=== PATIENT | male | born 1955 | race Caucasian/White ===

== ENCOUNTER 2021-01-17 09:15 | Inpatient (IN) | payer MEDICARE, SELFPAY ==
[2021-01-17] VITALS (26 sets, daily range): BP systolic 141–195; BP diastolic 68–91; PULSE 69–88; RESP 16–29; TEMP 36.3–38; O2SAT 93–98
--- NOTE | ~2021-01-17 | US_ITS ---
EXAMINATION: US renal BI EXAM DATE: 01/19/2021 09:38 INDICATION: Acute kidney injury. TECHNIQUE: Multiple grayscale and Doppler images of the kidneys were obtained (by a technologist who performed the scan) and subsequently reviewed. There is no prior study for comparison. FINDINGS: Right kidney: There is normal contour and echogenicity. It measures 9.2 x 5.1 x 6.7 centimeters. Th ere are no focal renal lesions identified. There is no hydronephrosis. Left kidney: There is normal contour and echogenicity. It measures 11.8 x 6.7 x 7.8 centimeters. Th ere are no focal renal lesions identified. There is no hydronephrosis. Bladder unremarkable. IMPRESSION: 1. Sonographically unremarkable kidneys. Reviewed, dictated and finalized at location A.
--- NOTE | ~2021-01-17 | XR_ITS ---
EXAMINATION: XR chest 2V DATE: 01/17/2021 10:53 INDICATION: Fever. TECHNIQUE: Frontal and lateral views of the chest were obtained. COMPARISON: None. FINDINGS: Calcified pulmonary nodules and calcified hilar and mediastinal lymph nodes are consistent with old granulomatous disease. There is mild atelectasis at left lung base. No pleural effusion or p neumothorax. The heart size is normal. IMPRESSION: 1. Mild atelectasis at left lung base. Reviewed, dictated and finalized at location A.
[2021-01-17 10:16] LABS: Lactic Acid Reflex 0.9 mmol/L (0.7-2.1)
[2021-01-17 10:19] LABS: Alanine Aminotransferase 32 U/L (4-50); Albumin Level 4.3 g/dL (3.5-5.1); Alkaline Phosphatase 68 U/L (38-126); Anion Gap 10 mmol/L (8-16); Aspartate Amino Transferase 26 U/L (17-59); Bilirubin,Total 1.4 mg/dL (0.2-1.3); Blood Urea Nitrogen 30 mg/dL (9-20); CRP 4.5 mg/dL (<1.0); Calcium 9.5 mg/dL (8.4-10.2); Carbon Dioxide 25 mmol/L (22-30); Chloride 104 mmol/L (98-107); Estimated CRCL calculation 57 ml/min; Estimated Glomerular Filt Rate 44; Glucose 135 mg/dL (75-110); Potassium 4.6 mmol/L (3.4-5.0); Sodium 139 mmol/L (137-145)
[2021-01-17 10:22] LABS: Basophils Percent Auto 0.2 % (0.2-1.2); Eosinophils Percent Auto 0.1 % (0-4.4); Hematocrit 43.7 % (42.0-52.0); Hemoglobin 14.3 g/dL (14.0-18.0); Immature Granulocyte Absolute 0.09 K/mm3 (0.00-0.031); Immature Granulocyte Percent A 0.6 % (0-0.5); Lymphocytes Absolute Auto 0.94 K/mm3 (0.9-3.2); Lymphocytes Percent Auto 5.9 % (18.3-44.2); Mean Corpuscular HGB Conc 32.7 g/dl (32-36); Mean Corpuscular Hemoglobin 29.9 pg (26-34); Mean Corpuscular Volume 91.2 fl (80-100); Mean Platelet Volume 9.7 fl (7.4-10.4); Monocytes Absolute Auto 1.1 K/mm3 (0.1-0.6); Monocytes Percent Auto 6.7 % (2.6-8.5); Neutrophils Absolute Auto 13.7 K/mm3 (1.3-6.7); Neutrophils Percent Auto 86.5 % (45.5-73.1); Platelet Count Result 135 k/mm3 (150-375); Red Blood Count 4.79 M/mm3 (4.6-6.20); White Blood Count 15.9 K/mm3 (4.5-10.0)
--- NOTE | 2021-01-17 10:25 | ED.FEVER ---
HPI - Fever General Chief Complaint: Fever <ASHLEY Alejandre - Last Filed: 01/17/21 12:25> Stated Complaint: weak, fever, v/d- surgery 2 weeks ago <ASHLEY Alejandre - Last Filed: 01/17/21 12:25> Time Seen by Provider: 01/17/21 10:08 <ASHLEY Alejandre - Last Filed: 01/17/21 12:25> Source: patient <ASHLEY Alejandre - Last Filed: 01/17/21 12:25> Mode of arrival: ambulatory <ASHLEY Alejandre - Last Filed: 01/17/21 12:25> Limitations: no limitations <ASHLEY Alejandre - Last Filed: 01/17/21 12:25> History of Present Illness HPI Narrative: Patient is a 65-year-old male who presents complaining of generalized weakness, nausea, vomiting x1, diarrhea, fever, urinary frequency and dysuria x1 day. Patient reports having right rotator cuff repair approximately [address] Herron. Patient reports little PO intake since yesterday Patient's reports calling Dr. Herron's office this a.m. and sent to the ED for further evaluation. Patient denies known Covid exposure, reports Covid vaccine x2. He reports a history of hypertension and elevated cholesterol. He denies taking any [id number] medications prior to arrival. <ASHLEY Alejandre - Last Filed: 01/17/21 12:25> MD elicited complaint: fever and weakness <ASHLEY Alejandre - Last Filed: 01/17/21 12:25> Related Data Allergies/Adverse Reactions: Allergies Allergy/AdvReac Type Severity Reaction Status Date / Time No Known Allergies Allergy Unknown Verified 01/17/21 09:46 <ASHLEY Alejandre - Last Filed: 01/17/21 12:25> Review of Systems Review of Systems: Narrative: CONSTITUTIONAL: Denies fever, chills, or sweats. EYES: Denies visual changes, redness, or discharge. ENT: Denies rhinorrhea, congestion, sore throat, or otalgia. CARDIOVASCULAR: Denies chest pain, palpitations, or edema. RESPIRATORY: Denies cough or dyspnea. GASTROINTESTINAL: Reports nausea, vomiting and diarrhea. GENITOURINARY: Reports dysuria and frequency SKIN: Denies rash or itching. MUSCULOSKELETAL: Denies back pain, joint pain, or myalgia. Reports mild right shoulder pain status post rotator cuff repair NEUROLOGIC: Denies headache, numbness, dizziness, or weakness. PSYCHIATRIC: Denies anxiety or depression. <ASHLEY Alejandre - Last Filed: 01/17/21 12:25> PMF Past Medical History Medical History: Medical History (Updated 01/17/21 @ 12:23 by ASHLEY Alejandre) Elevated cholesterol HTN (hypertension) <ASHLEY Alejandre - Last Filed: 01/17/21 12:25> Surgical History Surgical History: Surgical History (Updated 01/17/21 @ 10:29 by ASHLEY Alejandre) H/O repair of rotator cuff History of back surgery S/P right rotator cuff repair <ASHLEY Alejandre - Last Filed: 01/17/21 12:25> Family History Family History: Family History (Updated 01/17/21 @ 10:29 by ASHLEY Alejandre) Other Hypertension <ASHLEY Alejandre - Last Filed: 01/17/21 12:25> Social History Social History: Social History (Updated 01/17/21 @ 10:29 by ASHLEY Alejandre) Smoking status: Never smoker Alcohol intake: never Substance use: never Living arrangements: with family Occupation/Education: retired Gender identity (if verbalized by the patient): Male <ASHLEY Alejandre - Last Filed: 01/17/21 12:25> Comments At the time of signature, I have reviewed and agree with nursing past medical, surgical, social, and family history unless otherwise noted. Please see nursing chart for further information. There is no relevant family history pertinent to the presenting complaint. <ASHLEY Alejandre - Last Filed: 01/17/21 12:25> Exam Narrative: Exam Narrative: GENERAL: Well-appearing, well-nourished, and in no acute distress. HEAD: Normocephalic, atraumatic. EYES: EOMI. No redness or drainage. Conjunctiva are normal. ENT: Mucous membranes pink and moist. Nare
[2021-01-17 10:28] LABS: INR 1.1; Prothrombin Time 15.2 Seconds (11.1-14.7)
[2021-01-17 10:29] LABS: Partial Thromboplastin Time 30.8 SECONDS (22.3-36.8)
[2021-01-17] MEDS: ONDANSETRON INJ 4 MG/2 ML VIAL IV PUSH (11:12)
[2021-01-17] MEDS: SODIUM CHLORIDE 0.9% IV 1,000 ML 999 ML IV CONT (11:13)
[2021-01-17 11:21] LABS: Add Urine Microscopic? YES; Appearance Urine Cloudy (Clear); Bacteria Urine Trace /hpf; Bilirubin Urine Negative (Negative); Blood Urine 2+ (Negative); Color Urine Yellow (Yellow); Glucose Urine UA Negative (Negative); Ketones Urine Negative (Negative); Leukocyte Esterase Ur 3+ LEU/UL (Negative); Mucus Urine Rare /lpf; Nitrate Urine Positive (Negative); Protein Urine 1+ mg/dL (Negative); Specific Grav Ur 1.019 (1.001-1.035); Urobilinogen Urine Negative mg/dL (<2.0); WBC Urine >75 /hpf
[2021-01-17] MEDS: SODIUM CHLORIDE 0.9% IV 1,000 ML 125 ML IV CONT ×2 (13:06→16:33)
[2021-01-17] MEDS: LABETALOL HCL INJ 100 MG/20 ML VIAL 10 MG IV PUSH (13:06)
--- NOTE | 2021-01-17 15:15 | PM.IMHP ---
H&P: HPI History of Present Illness Date/Time: 01/17/21 15:15 Chief Complaint: Fever and dysuria. Narrative: This is a 65-year-old male with hypertension who presented to the emergency department earlier today via private vehicle from home for evaluation of fever and dysuria. He had a right sided rotator cuff repair done approximately 2 weeks ago and has been doing quite well in that regard. Unfortunately since his surgery he has just not felt 100% and has had a frequent ?upset stomach? and a poor appetite. Initially he attributed that to constipation from the pain medications however it continued after he stopped taking those medications and he has been having normal bowel movements up until yesterday. For the last several days he has had dysuria and yesterday morning he felt a bit worse with increasing nausea, several episodes of emesis, and loose stools x3. Last evening he developed a low-grade fever of 100.5? and it persisted through today thus he came in for evaluation. He was found to have a presumed urinary tract infection and is being admitted for IV antibiotics and IV fluid hydration as he is a bit dehydrated. At the time my evaluation his nausea is improved after receiving Zofran however he is not very hungry. He denies cold and flu symptoms, chest pain, shortness of breath, cough, and any issues with his right shoulder. No abdominal pain or low back pain. Review of Systems Review of Systems: Narrative: Twelve systems were reviewed with pertinent positives and negatives as per HPI. No recent antibiotics. He denies sick contacts. No recent travel. No history of C diff. No abdominal pain or epigastric pain. He takes ibuprofen rarely. No significant caffeine or alcohol use. Occasional indigestion. No melena or hematochezia. Except as documented, all other systems were reviewed and are negative. [facility] Past Medical History Medical History (Updated 01/17/21 @ 21:41 by Elba Mohamud PA-C) Essential hypertension Hyperlipidemia Obstructive sleep apnea Surgical History Surgical History (Updated 01/17/21 @ 21:41 by Elba Mohamud PA-C) History of lumbar surgery History of repair of left rotator cuff (~08/2008) History of repair of right rotator cuff (~12/2020) Family History Family History Other Hypertension Social History Social History (Updated 01/17/21 @ 21:41 by Elba Mohamud PA-C) Social History: The patient lives in [place] with his . Retired lino. No alcohol, tobacco, or illicit substance use. He designates his , Keara, as his surrogate decision maker and he wishes to be a full code. Meds Home Medications and Allergies Home Medications Medication Instructions Recorded Confirmed Type amlodipine 10 mg PO DAILY 01/17/21 01/17/21 History carvedilol 25 mg PO BID 01/17/21 01/17/21 History hydralazine 100 mg PO BID 01/17/21 01/17/21 History losartan 100 mg PO DAILY 01/17/21 01/17/21 History potassium chloride 40 meq PO DAILY 01/17/21 01/17/21 History rosuvastatin 10 mg PO DAILY 01/17/21 01/17/21 History spironolactone 25 mg PO DAILY 01/17/21 01/17/21 History Allergies Allergy/AdvReac Type Severity Reaction Status Date / Time No Known Allergies Allergy Unknown Verified 01/17/21 09:46 Vital Signs Vital Signs - 24 hr 01/17/21 09:42 01/17/21 09:43 01/17/21 09:45 Temperature 100.4 F H Pulse Rate 78 79 78 Respiratory Rate 20 24 H 20 Blood Pressure 179/91 H 179/91 H Pulse Oximetry 96 97 97 01/17/21 10:00 01/17/21 10:15 01/17/21 10:30 Temperature Pulse Rate 77 76 77 Respiratory Rate 17 17 29 H Blood Pressure Pulse Oximetry 98 96 97 01/17/21 10:31 01/17/21 10:49 01/17/21 10:54 Temperature Pulse Rate 77 84 88 Respiratory Rate 24 H 23 H 20 Blood Pressure 174/79 H 174/79 H Pulse Oximetry 96 96 96 01/17/21 11:01 01/17/21 11:02 01/17/21 11:15 Temperature Pulse Rate 81
--- NOTE | 2021-01-17 15:31 | ADMGEN ---
This patient, Yifan Hollins, was admitted to 2 Medical Room 240-. Patient/family oriented to hospital policies and general routines including ID bracelet, bed and alarms, visiting hours, pain management, procedures, bathroom and other care routines, personal items, smoking policy, room service/diet, and visiting hours. Information on how to activate the Rapid Response Team has been discussed. Patient/Family are encouraged to report perceived risks to care and to ask questions if they do not understand what they are told or what they should do.
[2021-01-17] MEDS: ACETAMINOPHEN 325 MG TABLET 650 MG PO (17:49)
[2021-01-17] MEDS: hydrALAZINE HCL 50 MG TABLET 100 MG PO (18:19)
[2021-01-17] MEDS: carvediloL 25 MG TABLET PO (19:46)
[2021-01-18] MEDS: SODIUM CHLORIDE 0.9% IV 1,000 ML 125 ML IV CONT ×2 (00:34→08:17)
[2021-01-18] MEDS: ONDANSETRON INJ 4 MG/2 ML VIAL IV PUSH ×2 (03:32→09:31)
[2021-01-18 05:48] VITALS: BP 160/78; PULSE 79; RESP 16; TEMP 36.9; O2SAT 94
[2021-01-18 05:48] LABS: Hematocrit 40.8 % (42.0-52.0); Hemoglobin 13.1 g/dL (14.0-18.0); Mean Corpuscular HGB Conc 32.1 g/dl (32-36); Mean Corpuscular Volume 93.4 fl (80-100); Mean Platelet Volume 10.2 fl (7.4-10.4); Platelet Count Result 107 k/mm3 (150-375); Red Blood Count 4.37 M/mm3 (4.6-6.20); Red Cell Distribution Width 13.2 % (11.5-14.5); White Blood Count 14.2 K/mm3 (4.5-10.0)
[2021-01-18 06:04] LABS: Alanine Aminotransferase 31 U/L (4-50); Albumin Level 3.6 g/dL (3.5-5.1); Alkaline Phosphatase 57 U/L (38-126); Anion Gap 9 mmol/L (8-16); Aspartate Amino Transferase 27 U/L (17-59); Bilirubin,Total 1.4 mg/dL (0.2-1.3); Blood Urea Nitrogen 22 mg/dL (9-20); Calcium 8.3 mg/dL (8.4-10.2); Carbon Dioxide 19 mmol/L (22-30); Chloride 109 mmol/L (98-107); Estimated CRCL calculation 76 ml/min; Estimated Glomerular Filt Rate > 60; Glucose 135 mg/dL (75-110); Magnesium 2.1 mg/dL (1.6-2.3); Potassium 4.3 mmol/L (3.4-5.0); Sodium 137 mmol/L (137-145)
[2021-01-18] MEDS: LOSARTAN POTASSIUM 100 MG TABLET PO (08:14)
[2021-01-18] MEDS: hydrALAZINE HCL 50 MG TABLET 100 MG PO ×2 (08:14→17:59)
[2021-01-18] MEDS: ROSUVASTATIN 10 MG TABLET PO (08:14)
[2021-01-18] MEDS: amLODIPine BESYLATE 5 MG TABLET 10 MG PO (08:14)
[2021-01-18 08:15] VITALS: PULSE 80
[2021-01-18] MEDS: carvediloL 25 MG TABLET PO ×2 (08:15→21:03)
--- NOTE | 2021-01-18 09:00 | PM.IMPN ---
Progress Note: A&P Assessment and Plan (1) Urinary tract infection: Qualifiers: Hematuria presence: with hematuria Urinary tract infection type: site unspecified Qualified Code(s): N39.0 - Urinary tract infection, site not specified; R31.9 - Hematuria, unspecified Code(s): N39.0 - Urinary tract infection, site not specified Status: Acute Assessment and Plan: Urine culture grossly abnormal. Tmax 100.4. Fever resolved. Leukocytosis improving. Continue empiric ceftriaxone Urine cultures and blood cultures pending Continue gentle IV fluids until better tolerating PO intake. (2) Renal failure: Code(s): N19 - Unspecified kidney failure Status: Acute Assessment and Plan: Acute renal failure, likely secondary to dehydration in the setting of poor oral intake, vomiting, loose stool, and fever. Cr 1.6 at presentation, declined to 1.2 with IV fluids. Continue gentle IV fluids Monitor renal function closely (3) Essential hypertension: Code(s): I10 - Essential (primary) hypertension Status: Acute Assessment and Plan: Blood pressures reviewed and they have been as high as 195/86 in the emergency department. Patient had nausea and vomiting and was not been able to hold down medications. Improved after labetalol 10 milligrams IV. Last BP 160/78 this morning prior to administration of antihypertensives. Resume amlodipine, carvedilol, hydralazine, and losartan (4) Hyperlipidemia: Code(s): E78.5 - Hyperlipidemia, unspecified Status: Acute Assessment and Plan: Continue statin. LFTs unremarkable. Subjective Date/time seen: 01/18/21 09:00 Interval history: Date of service: 01/18/2021 Yifan Hollins is a 65-year-old male with history of hypertension, hyperlipidemia, YUE, and recent rotator cuff surgery 2 weeks ago who is seen in follow-up for acute UTI. He is feeling better today. He reports his dysuria has resolved. He is still experiencing frequency and urgency. Denies hematuria, dark urine, or foul smelling urine. He reports several episodes of loose brown stools. This seems to be lessening. He still feels very weak. He denies dizziness or lightheadedness. His appetite is still poor and he notes he is not drinking enough water. He denies nausea or vomiting. No further fevers, no chills or sweats. No abdominal pain, flank pain, or back pain. No shortness breath, cough, chest pain, or palpitations. Review of Systems Review of Systems: All systems reviewed & are unremarkable except as noted in HPI and below Exam Narrative: Exam Narrative: Mr. Hollins is a well-nourished, well-appearing 65-year-old male who is lying semi recumbent in bed. He appears comfortable and is in NARD. Neuro: awake, alert and oriented x4, speech clear, no focal neuro deficits noted HEENMT: normocephalic, atraumatic, EOMI, sclerae anicteric, moist oral mucosa, tongue midline, nares patent Neck: supple, no lymphadenopathy Respiratory: clear to auscultation bilaterally, nonlabored breathing Cardio: regular rate, regular rhythm with S1-S2 Abdomen: Protuberant, normoactive bowel sounds, soft, nontender to palpation, no rigidity or guarding : no CVA tenderness Extremities: right arm in shoulder immobilizer, no edema, erythema, cyanosis, clubbing, or tenderness to palpation, DP pulses 2+ bilaterally Skin: no rashes or lesions, warm and dry Psych: appropriate mood and affect, judgment and insight intact Objective Data Vital Signs Vital Signs: Vital Signs - 24 hr 01/17/21 09:42 01/17/21 09:43 01/17/21 09:45 Temperature 100.4 F H Pulse Rate 78 79 78 Respiratory Rate 20 24 H 20 Blood Pressure 179/91 H 179/91 H Pulse Oximetry 96 97 97 01/17/21 10:00 01/17/21 10:15 01/17/21 10:30 Temperature Pulse Rate 77 76 77 Respiratory Rate 17 17 29 H Blood Pressure Pulse Oximetry 98 96 97 01/17/21 10:31 01/17/21 10:49
[2021-01-18 10:57] VITALS: O2SAT 94
[2021-01-18] MEDS: SACCHAROMYCES BOULARDII 250 MG CAPSULE PO ×2 (12:02→17:59)
[2021-01-18 14:00] VITALS: BP 129/53; PULSE 70; RESP 18; TEMP 36.6; O2SAT 96
[2021-01-18 21:03] VITALS: PULSE 68
[2021-01-18] MEDS: SODIUM CHLORIDE 0.9% IV 1,000 ML 75 ML IV CONT (21:03)
[2021-01-18 21:28] VITALS: BP 151/69; PULSE 76; RESP 16; TEMP 36.6; O2SAT 96
[2021-01-19 05:28] VITALS: BP 156/81; PULSE 65; RESP 16; TEMP 36.6; O2SAT 97
[2021-01-19 05:45] LABS: Hematocrit 38.7 % (42.0-52.0); Hemoglobin 12.2 g/dL (14.0-18.0); Mean Corpuscular HGB Conc 31.5 g/dl (32-36); Mean Corpuscular Hemoglobin 29.3 pg (26-34); Mean Platelet Volume 9.6 fl (7.4-10.4); Platelet Count Result 131 k/mm3 (150-375); Red Blood Count 4.16 M/mm3 (4.6-6.20); Red Cell Distribution Width 13.3 % (11.5-14.5); White Blood Count 11.6 K/mm3 (4.5-10.0)
[2021-01-19 06:11] LABS: Anion Gap 7 mmol/L (8-16); Blood Urea Nitrogen 26 mg/dL (9-20); Calcium 8.3 mg/dL (8.4-10.2); Carbon Dioxide 22 mmol/L (22-30); Chloride 112 mmol/L (98-107); Estimated CRCL calculation 57 ml/min; Estimated Glomerular Filt Rate 44; Glucose 131 mg/dL (75-110); Sodium 141 mmol/L (137-145)
[2021-01-19 08:14] VITALS: PULSE 65
[2021-01-19] MEDS: ROSUVASTATIN 10 MG TABLET PO (08:14)
[2021-01-19] MEDS: SACCHAROMYCES BOULARDII 250 MG CAPSULE PO ×2 (08:14→16:48)
[2021-01-19] MEDS: hydrALAZINE HCL 50 MG TABLET 100 MG PO ×2 (08:14→16:47)
[2021-01-19] MEDS: amLODIPine BESYLATE 5 MG TABLET 10 MG PO (08:14)
[2021-01-19] MEDS: carvediloL 25 MG TABLET PO ×2 (08:14→22:30)
[2021-01-19] MEDS: SODIUM CHLORIDE 0.9% IV 1,000 ML 75 ML IV CONT (11:30)
--- NOTE | 2021-01-19 13:45 | PM.IMPN ---
Progress Note: A&P Assessment and Plan (1) Urinary tract infection: Qualifiers: Hematuria presence: with hematuria Urinary tract infection type: site unspecified Qualified Code(s): N39.0 - Urinary tract infection, site not specified; R31.9 - Hematuria, unspecified Code(s): N39.0 - Urinary tract infection, site not specified Status: Acute Assessment and Plan: Urine culture grossly abnormal. Tmax 100.4. Fever resolved. Leukocytosis improving. Urine culture with growth of >100k E coli. Continue ceftriaxone based on sensitivities (2) Renal failure: Code(s): N19 - Unspecified kidney failure Status: Acute Assessment and Plan: Acute renal failure (although baseline unknown), likely secondary to dehydration in the setting of poor oral intake, vomiting, loose stool, and fever. Cr 1.6 at presentation and improved with IV fluids down to 1.2 yesterday. Slight bump in creatinine back up to 1.6 today. Renal ultrasound unremarkable. Continue IV fluids Monitor renal function closely. Avoid nephrotoxic agents. I will plan to call his PCP tomorrow to determine baseline renal function (3) Essential hypertension: Code(s): I10 - Essential (primary) hypertension Status: Acute Assessment and Plan: Blood pressures reviewed and were initially elevated as the patient had been unable to keep down his medications. BP improved on typical medication regimen. Last BP 156/81. Continue amlodipine, carvedilol, hydralazine Holding losartan given MARISOL (4) Hyperlipidemia: Code(s): E78.5 - Hyperlipidemia, unspecified Status: Acute Assessment and Plan: Continue statin. LFTs unremarkable. Subjective Date/time seen: 01/19/21 13:45 Interval history: Date of service: 01/19/2021 Yifan Hollins is a 65-year-old male with history of hypertension, hyperlipidemia, YUE, and recent rotator cuff surgery 2 weeks ago who is seen in follow-up for acute UTI. His urinary symptoms have resolved. He is urinating frequently while on fluids but denies urgency, dysuria, hematuria, weak stream. Stool is more formed today. No fevers, chills, or sweats. Denies shortness of breath or chest pain. No dizziness or lightheadedness. No flank pain or back pain. Appetite is better. Denies weakness, dizziness, lightheadedness. No shoulder pain and no issues with immobilizer. Review of Systems Review of Systems: All systems reviewed & are unremarkable except as noted in HPI and below Exam Narrative: Exam Narrative: Mr. Hollins is a well-nourished, well-appearing 65-year-old male who is lying semi recumbent in bed. He appears comfortable and is in NARD. Neuro: awake, alert and oriented x4, speech clear, no focal neuro deficits noted HEENMT: normocephalic, atraumatic, EOMI, sclerae anicteric, moist oral mucosa, tongue midline, nares patent Neck: supple, no lymphadenopathy Respiratory: clear to auscultation bilaterally, nonlabored breathing Cardio: regular rate, regular rhythm with S1-S2 Abdomen: Protuberant, normoactive bowel sounds, soft, nontender to palpation, no rigidity or guarding : no CVA tenderness Extremities: right arm in shoulder immobilizer, upper extremities neurovascularly intact with good capillary refill. BLE without edema, erythema, cyanosis, clubbing, or tenderness to palpation, DP pulses 2+ bilaterally Skin: no rashes or lesions, warm and dry Psych: appropriate mood and affect, judgment and insight intact Objective Data Vital Signs Vital Signs: Vital Signs - 24 hr 01/18/21 14:00 01/18/21 21:03 01/18/21 21:28 Temperature 97.8 F 97.8 F Pulse Rate 70 68 76 Respiratory Rate 18 16 Blood Pressure 129/53 L 151/69 H Pulse Oximetry 96 96 01/19/21 05:28 01/19/21 08:14 Temperature 97.8 F Pulse Rate 65 65 Respiratory Rate 16 Blood Pressure 156/81 H Pulse Oximetry 97 Intake/Output Intake/Output: Intake & Output 01/16/21
[2021-01-19 14:00] VITALS: BP 132/69; PULSE 68; RESP 16; TEMP 36.2; O2SAT 98
[2021-01-19] MEDS: SODIUM CHLORIDE 0.9% IV 1,000 ML 100 ML IV CONT ×2 (16:47→22:27)
[2021-01-19 21:19] VITALS: BP 161/73; PULSE 76; RESP 16; TEMP 36.9; O2SAT 96
[2021-01-19 22:30] VITALS: PULSE 76
[2021-01-19 23:45] VITALS: PULSE 69; RESP 18; O2SAT 95
[2021-01-20 02:30] VITALS: PULSE 67; RESP 296; O2SAT 95
[2021-01-20 05:25] VITALS: BP 151/82; PULSE 63; RESP 16; TEMP 36.3; O2SAT 100
[2021-01-20 05:41] LABS: Hematocrit 38.1 % (42.0-52.0); Hemoglobin 12.1 g/dL (14.0-18.0); Mean Corpuscular HGB Conc 31.8 g/dl (32-36); Mean Corpuscular Hemoglobin 29.4 pg (26-34); Mean Corpuscular Volume 92.5 fl (80-100); Mean Platelet Volume 9.6 fl (7.4-10.4); Platelet Count Result 152 k/mm3 (150-375); Red Blood Count 4.12 M/mm3 (4.6-6.20); Red Cell Distribution Width 13.3 % (11.5-14.5); White Blood Count 8.4 K/mm3 (4.5-10.0)
[2021-01-20 06:08] LABS: Anion Gap 7 mmol/L (8-16); Blood Urea Nitrogen 22 mg/dL (9-20); Calcium 8.5 mg/dL (8.4-10.2); Carbon Dioxide 24 mmol/L (22-30); Chloride 112 mmol/L (98-107); Estimated CRCL calculation 76 ml/min; Estimated Glomerular Filt Rate > 60; Glucose 119 mg/dL (75-110); Sodium 143 mmol/L (137-145)
[2021-01-20 08:57] VITALS: O2SAT 95
[2021-01-20 09:17] VITALS: PULSE 63
[2021-01-20] MEDS: carvediloL 25 MG TABLET PO (09:17)
[2021-01-20] MEDS: ROSUVASTATIN 10 MG TABLET PO (09:17)
[2021-01-20] MEDS: SACCHAROMYCES BOULARDII 250 MG CAPSULE PO (09:17)
[2021-01-20] MEDS: amLODIPine BESYLATE 5 MG TABLET 10 MG PO (09:17)
[2021-01-20] MEDS: hydrALAZINE HCL 50 MG TABLET 100 MG PO (09:17)
[2021-01-20] MEDS: SODIUM CHLORIDE 0.9% IV 1,000 ML 100 ML IV CONT (09:20)
--- NOTE | 2021-01-20 10:21 | PM.DS ---
DS: Admitting Diagnosis Admitting Diagnosis Admitting Diagnosis: UTI DS: Discharge Diagnosis Discharge Diagnosis (1) Urinary tract infection: Qualifiers: Hematuria presence: with hematuria Urinary tract infection type: site unspecified Qualified Code(s): N39.0 - Urinary tract infection, site not specified; R31.9 - Hematuria, unspecified Code(s): N39.0 - Urinary tract infection, site not specified Status: Acute Assessment and Plan: Urine culture grossly abnormal. He had low-grade fever (100.4) and leukocytosis which both resolved. He was started on IV ceftriaxone. Urine culture with growth of >100k E coli sensitive to ceftriaxone. He will continue p.o. Augmentin to complete a 7 day course of antibiotic therapy. (2) Renal failure: Code(s): N19 - Unspecified kidney failure Status: Acute Assessment and Plan: Last labs were from 2019 with creatinine 1.08 per PCP office. Acute renal failure likely secondary to dehydration in the setting of poor oral intake, vomiting, loose stool, and fever. Cr 1.6 at presentation and improved with IV fluids down to 1.2. Renal ultrasound unremarkable. Encouraged oral fluid hydration. (3) Essential hypertension: Code(s): I10 - Essential (primary) hypertension Status: Acute Assessment and Plan: Blood pressures reviewed and were initially elevated as the patient had been unable to keep down his medications. BP improved on typical medication regimen. Continue amlodipine, carvedilol, hydralazine. Losartan initially held given MARISOL and this will be resumed. (4) Hyperlipidemia: Code(s): E78.5 - Hyperlipidemia, unspecified Status: Acute Assessment and Plan: Continue statin. LFTs unremarkable. (5) History of repair of right rotator cuff: Onset Date: ~12/2020 Code(s): Z98.890 - Other specified postprocedural states Status: Inactive Assessment and Plan: Recent surgery several weeks prior. Continue shoulder immobilizer and outpatient physical therapy. (6) Obstructive sleep apnea: Code(s): G47.33 - Obstructive sleep apnea (adult) (pediatric) Status: Acute Assessment and Plan: CPAP continued during admission. DS: Summary Hospital Course Hospital Course: Date of admission: 01/17/2021 Date of discharge: 01/20/2021 Yifan Hollins is a 65-year-old male with history of hypertension, hyperlipidemia, YUE, and recent rotator cuff surgery 2 weeks ago who presented to the emergency department on 01/17/2021 with complaints of weakness, nausea, vomiting, fever, dysuria, and diarrhea. He had been unable to tolerate oral intake. Upon presentation to the emergency department, his blood pressure was elevated at 170 9/91, additional vital signs are stable, his white count was elevated at 15.9, mild thrombocytopenia with platelet level 135, H&H within normal limits, BUN and creatinine elevated with additional electrolytes stable, urinalysis was grossly abnormal, lactic 0.9, and CXR showed mild atelectasis at the left lung base. He was admitted to the hospitalist service for further evaluation and management. He was treated with IV antibiotics for his urinary tract infection and rehydrated with IV fluids. All of his symptoms improved significantly. Blood cultures collected with coag-negative staphylococcus in 1 of 2 bottles. This was felt to be secondary to contamination. Final cultures will be closely monitored. He was tolerating his diet and was feeling much better. Given his overall improvement, he was determined to no longer require inpatient care and was felt to be stable for discharge. We discussed worrisome signs and symptoms for which to return and he was educated on his medications. He was discharged in hemodynamically stable condition on 01/20/2021. Status at Discharge Functional status at discharge: independent ambulation Overall status at discharge: patient is
== END 2021-01-20 12:30 | disposition home or self-care (01) | DRG 690 ==
LOC: ANHED 12:23 → ANH2MED 14:06
PROVIDERS: Emergency Medicine; Physician Assistant; Admitting Provider Internal Medicine; Emergency Provider Nurse Practitioner; PCP Internal Medicine; Visit Provider Internal Medicine
DX: N39.0 Urinary tract infection, site not specified (principal); N17.9 Acute kidney failure, unspecified; I10 Essential (primary) hypertension; E78.5 Hyperlipidemia, unspecified; G47.33 Obstructive sleep apnea (adult) (pediatric); E86.0 Dehydration; B96.20 Unspecified Escherichia coli [E. coli] as the cause of diseases classified elsewhere
CPT/HCPCS: 36415; 71046; 76775; 80048; 80053; 81001; 83605; 83735; 85025; 85027; 85610; 85730; 86140; 87040; 87077; 87086; 87088; 87186; 96361; 96365; 96367; 96375; 96376; 99285; A9270; G0378; J0131; J0696; J2405; J7030